=== PATIENT | female | born 2000 | race Caucasian/White ===

== ENCOUNTER 2023-12-01 16:18 | Outpatient (OUT) | payer BC, SELFPAY ==
[2023-12-01 17:50] LABS: Free T4 0.84 ng/dL (0.76-1.46); Thyroid Stimulating Hormone 3.017 uIU/mL (0.358-3.740)
== END 2023-12-01 16:19 | disposition home or self-care (01) ==
LOC: LAB 16:24
PROVIDERS: PCP Family Medicine; Visit Provider Family Medicine
DX: E03.9 Hypothyroidism, unspecified (principal)
CPT/HCPCS: 36415; 84439; 84443